=== PATIENT | female | born 1975 | race Caucasian/White ===

== ENCOUNTER 2016-10-30 04:39 | Emergency (ER) | payer MEDICAID ==
[2016-10-30] MEDS ORDERED: CYCLOBENZAPRINE 10 MG TAB ONE (07:09)
== END 2016-10-30 08:33 | disposition home or self-care (01) ==
LOC: ER 04:39
CPT/HCPCS: 70450; 70486; 72125

== ENCOUNTER 2016-11-16 09:33 | Emergency (ER) | payer MEDICAID | END 2016-11-16 10:20 | disposition home or self-care (01) | LOC: ER 09:33 | DX: H66.001 Acute suppurative otitis media without spontaneous rupture of ear drum, right ear (principal); H65.02 Acute serous otitis media, left ear; J02.9 Acute pharyngitis, unspecified; J01.00 Acute maxillary sinusitis, unspecified; K08.89 Other specified disorders of teeth and supporting structures; F31.9 Bipolar disorder, unspecified; Z79.899 Other long term (current) drug therapy; Z85.828 Personal history of other malignant neoplasm of skin | CPT/HCPCS: 87804; 87880 ==